=== PATIENT | male | born 1970 | race Caucasian/White ===

== ENCOUNTER 2016-12-09 20:39 | Inpatient (IN) | payer OTHER ==
[~2016-12-09] VITALS: Ht 185.4 cm; Wt 125.0 kg
[2016-12-09 20:40] VITALS: BP 131/78; PULSE 141; RESP 18; TEMP 98.2; O2SAT 100
[2016-12-09 21:09] VITALS: BP 127/74; PULSE 130; RESP 18; O2SAT 100
[2016-12-09] MEDS ORDERED: SODIUM CHLOR 0.9% 1000 ML INJ 1,000 ML IV SCH (21:09)
[2016-12-09] MEDS ORDERED: SODIUM CHLORIDE 0.9% FLUSH 10 ML FLUSH IVF PRN (21:15)
[2016-12-09] MEDS ORDERED: LORazepam 2 MG/ML VIAL ONE (21:25)
[2016-12-09 21:40] VITALS: O2SAT 100
[2016-12-09] MEDS ORDERED: LORazepam 2 MG/ML VIAL IV PUSH ONE (21:45)
--- NOTE | 2016-12-09 21:49 | PD ---
HPI Chief Complaint: GI Complaint Time Seen by Provider: 21:15 Travel History International Travel<30 days: No Contact w/Intl Traveler<30days: No Traveled to known affect area: No History of Present Illness HPI Patient is a 46-year-old male that attended to emergency room evaluation of black tar-like stools for the last 4 days. Patient states that over the course of week and he's felt increasingly more fatigued. states that he was at [employer] today and told her that he felt as if he was going to pass out if he kept standing. He denies any chest pain, shortness of breath, abdominal pain, fever, chills. Patient does take Aleve 2 [id number] tablets every night, he does not take any aspirin. He does have a history of diverticulitis otherwise he has no significant past medical history. PFSH Past Medical History Diminished Hearing: No Diverticulitis: Yes Past Surgical History Surgical History: No Previous Surgery Social History Alcohol Use: No Tobacco Use: No Substance Use: No Allergies-Medications (Allergen,Severity, Reaction): Coded Allergies: No Known Allergies (Unverified , 12/09/16) Reported Meds & Prescriptions Reported Meds & Active Scripts Active No Active Prescriptions or Reported Medications Review of Systems Except as stated in HPI: all other systems reviewed are Neg General / Constitutional: Positive: Other (fatigue) Gastrointestinal: Positive: Changes in Bowel Habits, Other (dark, tar like stool) Neurologic: Positive: Weakness Physical Exam Narrative GENERAL: Well-developed, well-nourished, alert male. Appears anxious , in no acute distress. SKIN: Warm and dry. HEAD: Atraumatic. Normocephalic. EYES: Pupils equal and round. No scleral icterus. No injection or drainage. ENT: No nasal bleeding or discharge. Mucous membranes pink and moist. NECK: Trachea midline. No JVD. CARDIOVASCULAR: Tachycardic RESPIRATORY: No accessory muscle use. Clear to auscultation. Breath sounds equal bilaterally. GASTROINTESTINAL: Abdomen soft, non-tender, nondistended. Hepatic and splenic margins not palpable. MUSCULOSKELETAL: Extremities without clubbing, cyanosis, or edema. No obvious deformities. NEUROLOGICAL: Awake and alert. No obvious cranial nerve deficits. Motor grossly within normal limits. Five out of 5 muscle strength in the arms and legs. Normal speech. PSYCHIATRIC: Appropriate mood and affect; insight and judgment normal. Data Data Last Documented VS Vital Signs Date Time Temp Pulse Resp B/P Pulse Ox O2 Delivery O2 Flow Rate FiO2 12/10/16 00:44 98.7 102 16 136/79 99 Room Air Orders Complete Blood Count With Diff (12/09/16 21:09) Comprehensive Metabolic Panel (12/09/16 21:09) Lipase (12/09/16 21:09) Prothrombin Time / Inr (Pt) (12/09/16 21:09) Act Partial Throm Time (Ptt) (12/09/16 21:09) Urinalysis - C+S If Indicated (12/09/16 21:09) Ecg Monitoring (12/09/16 21:09) Iv Access Insert/Monitor (12/09/16 21:09) Oximetry (12/09/16 21:09) Sodium Chlor 0.9% 1000 Ml Inj (Ns 1000 M (12/09/16 21:09) Sodium Chloride 0.9% Flush (Ns Flush) (12/09/16 21:15) Type And Screen (12/09/16 21:09) Lorazepam Inj (Ativan Inj) (12/09/16 21:25) Lorazepam Inj (Ativan Inj) (12/09/16 21:45) Ct Abd/Pel W Iv Contrast(Rout) (12/09/16 ) Iohexol 350 Inj (Omnipaque 350 Inj) (12/10/16 00:10) Pantoprazole Inj (Protonix Inj) (12/10/16 01:00) Pantoprazole Inj (Protonix Inj) (12/10/16 01:00) Admit Order (Ed Use Only) (12/10/16 00:51) Admit To Inpatient (12/10/16 ) Vital Signs (Adult) Q4H (12/10/16 00:52) Activity Oob Ad Melva (12/10/16 00:52) Intake + Output ZAKIA.QSHIFT (12/10/16 00:52) Sodium Chlor 0.9% 1000 Ml Inj (Ns 1000 M (12/10/16 00:52) Sodium Chloride 0.9% Flush (Ns Flush) (12/10/16 01:00) Sodium Chloride 0.9% Flush (Ns Flush) (12/10/16 09:00) Ondansetron Inj (Zofran Inj) (12/10/16 01:00) Comprehensive Metabolic Panel (12/11/16 06:00) Complete Blood Count With Diff (12/10/16 06:00) Pharmacologic Contraindication (12/10/16 00:52) Acetaminophen (Tylenol) (12/10/16 01:00) Acetamin-Hydrocod 325-5 Mg ([place] 5-325 (12/10/16 01:00) Docusate Sodium-Senna (Keri-Colace) (12/10/16 09:00) Magnesium Hydroxide Liq (Milk Of Magnesi (12/10/16 01:00) Sennosides (Senokot) (12/10/16 01:00) Bisacodyl Supp (Dulcolax Supp) (12/10/16 01:00) Lactulose Liq (Lactulose Liq) (12/10/16 01:00) Inpatient Certification (12/10/16 ) Consult Gastroenterology (12/10/16 ) Morphine Inj (Morphine Inj) (12/10/16 01:15) Labs Laboratory Tests Test 12/09/16 12/09/16 21:30 23:30 White Blood Count 15.7 TH/MM3 Red Blood Count 3.17 MIL/MM3 Hemoglobin 9.9 GM/DL Hematocrit 28.9 % Mean Corpuscular Volume 91.1 FL Mean Corpuscular Hemoglobin 31.0 PG Mean Corpuscular Hemoglobin 34.1 % Concent Red Cell Distribution Width 13.2 % Platelet Count 261 TH/MM3 Mean Platelet Volume 9.3 FL Neutrophils (%) (Auto) 63.8 % Lymphocytes (%) (Auto) 27.5 % Monocytes (%) (Auto) 8.0 % Eosinophils (%) (Auto) 0.2 % Basophils (%) (Auto) 0.5 % Neutrophils # (Auto) 10.0 TH/MM3 Lymphocytes # (Auto) 4.3 TH/MM3 Monocytes # (Auto) 1.3 TH/MM3 Eosinophils # (Auto) 0.0 TH/MM3 Basophils # (Auto) 0.1 TH/MM3 CBC Comment DIFF FINAL Differential Comment Prothrombin Time 10.5 SEC Prothromb Time International 1.0 RATIO Ratio Activated Partial 23.2 SEC Thromboplast Time Sodium Level 142 MEQ/L Potassium Level 3.6 MEQ/L Chloride Level 106 MEQ/L Carbon Dioxide Level 26.1 MEQ/L Anion Gap 10 MEQ/L Blood Urea Nitrogen 35 MG/DL Creatinine 1.06 MG/DL Estimat Glomerular Filtration 75 ML/MIN Rate Random Glucose 144 MG/DL Calcium Level 8.4 MG/DL Total Bilirubin 0.2 MG/DL Aspartate Amino Transf 12 U/L (AST/SGOT) Alanine Aminotransferase 29 U/L (ALT/SGPT) Alkaline Phosphatase 76 U/L Total Protein 7.0 GM/DL Albumin 3.5 GM/DL Lipase 184 U/L Blood Type O POSITIVE Antibody Screen NEGATIVE Blood Bank Comment Urine Color LIGHT-YELLOW Urine Turbidity CLEAR Urine pH 6.0 Urine Specific [place] 1.026 Urine Protein NEG mg/dL Urine Glucose (UA) NEG mg/dL Urine Ketones 10 mg/dL Urine Occult Blood NEG Urine Nitrite NEG Urine Bilirubin NEG Urine Urobilinogen LESS THAN 2.0 MG/DL Urine Leukocyte Esterase NEG Urine RBC 2 /hpf Urine WBC 2 /hpf Microscopic Urinalysis Comment CULT NOT INDICATED MDM Medical Decision Making Medical Screen Exam Complete: Yes Emergency Medical Condition: Yes Interpretation(s) Vital Signs Date Time Temp Pulse Resp B/P Pulse Ox O2 Delivery O2 Flow Rate FiO2 12/09/16 21:40 100 Room Air 12/09/16 21:09 16 12/09/16 21:09 130 18 127/74 100 Room Air 12/09/16 20:40 98.2 141 18 131/78 100 Room Air Laboratory Tests Test 12/09/16 21:30 White Blood Count 15.7 TH/MM3 Red Blood Count 3.17 MIL/MM3 Hemoglobin 9.9 GM/DL Hematocrit 28.9 % Mean Corpuscular Volume 91.1 FL Mean Corpuscular Hemoglobin 31.0 PG Mean Corpuscular Hemoglobin 34.1 % Concent Red Cell Distribution Width 13.2 % Platelet Count 261 TH/MM3 Mean Platelet Volume 9.3 FL Neutrophils (%) (Auto) 63.8 % Lymphocytes (%) (Auto) 27.5 % Monocytes (%) (Auto) 8.0 % Eosinophils (%) (Auto) 0.2 % Basophils (%) (Auto) 0.5 % Neutrophils # (Auto) 10.0 TH/MM3 Lymphocytes # (Auto) 4.3 TH/MM3 Monocytes # (Auto) 1.3 TH/MM3 Eosinophils # (Auto) 0.0 TH/MM3 Basophils # (Auto) 0.1 TH/MM3 CBC Comment DIFF FINAL Differential Comment Prothrombin Time 10.5 SEC Prothromb Time International 1.0 RATIO Ratio Activated Partial 23.2 SEC Thromboplast Time Sodium Level 142 MEQ/L Potassium Level 3.6 MEQ/L Chloride Level 106 MEQ/L Carbon Dioxide Level 26.1 MEQ/L Anion Gap 10 MEQ/L Blood Urea Nitrogen 35 MG/DL Creatinine 1.06 MG/DL Estimat Glomerular Filtration 75 ML/MIN Rate Random Glucose 144 MG/DL Calcium Level 8.4 MG/DL Total Bilirubin 0.2 MG/DL Aspartate Amino Transf 12 U/L (AST/SGOT) Alanine Aminotransferase 29 U/L (ALT/SGPT) Alkaline Phosphatase 76 U/L Total Protein 7.0 GM/DL Albumin 3.5 GM/DL Lipase 184 U/L Blood Type O POSITIVE Antibody Screen NEGATIVE Blood Bank Comment Vital Signs Date Time Temp Pulse Resp B/P Pulse Ox O2 Delivery O2 Flow Rate FiO2 12/09/16 21:40 100 Room Air 12/09/16 21:09 16 12/09/16 21:09 130 18 127/74 100 Room Air 12/09/16 20:40 98.2 141 18 131/78 100 Room Air Differential Diagnosis GI bleed versus anemia versus metabolic disturbance versus other Narrative Course Patient is a 46-year-old male presenting to emergency evaluation of 4 days of dark, tarry-like stools, fatigue and weakness. Patient is tachycardic on arrival, he has a significant phobia to needles as well as being in the hospital. Initial EKG shows sinus tachycardia with a rate of 126. Labs ordered and pending, at bedside. Hemocard positive for blood. CBC with a white count of 15.7, hemoglobin 9.9/28.9 Chemistry with no acute abnormality Coags are unremarkable CT scan of the abdomen and pelvis is ordered due to elevation in white count. Patient will be admitted to trend hemoglobin, CT results pending. Care of patient transferred to my attending physician who will finalize patient's disposition after all the labs and imaging have resulted. HemaPrompt Point of Care Fecal Specimen Occult Blood: Positive Scripts No Active Prescriptions or Reported Meds Kristin Hinds Dec 09, 2016 21:49
[2016-12-09 22:08] LABS: BASOPHIL # 0.1 TH/MM3 (0-0.2); BASOPHIL % 0.5 % (0.0-2.0); EOSINOPHIL % 0.2 % (0.0-4.0); HEMATOCRIT 28.9 % (39.0-51.0); HEMO FLAGS DIFF FINAL; LYMPH % 27.5 % (9.0-44.0); LYMPHOCYTE # 4.3 TH/MM3 (1.0-4.8); MEAN CELL VOLUME 91.1 FL (80.0-100.0); MEAN CORPUSCULAR HGB CONC 34.1 % (32.0-36.0); NEUT % 63.8 % (16.0-70.0); PLATELET COUNT 261 TH/MM3 (150-450); RED BLOOD COUNT 3.17 MIL/MM3 (4.50-5.90); RED CELL DISTRIBUTION WIDTH 13.2 % (11.6-17.2); WHITE BLOOD COUNT 15.7 TH/MM3 (4.0-11.0)
[2016-12-09 22:24] LABS: ALT (GPT) 29 U/L (12-78); ANION GAP 10 MEQ/L (5-15); AST (GOT) 12 U/L (15-37); BICARBONATE 26.1 MEQ/L (21.0-32.0); BLOOD UREA NITROGEN 35 MG/DL (7-18); CHLORIDE 106 MEQ/L (98-107); GLOMERULAR FILTRATION RATE 75 ML/MIN (>89); POTASSIUM 3.6 MEQ/L (3.5-5.1); SODIUM (NA) 142 MEQ/L (136-145)
[2016-12-09 22:25] LABS: ALKALINE PHOSPHATASE 76 U/L (45-117); TOTAL BILIRUBIN ADULT 0.2 MG/DL (0.2-1.0)
[2016-12-09 22:43] LABS: APTT (PATIENT) 23.2 SEC (24.3-30.1); PROTHROMBIN TIME - PATIENT 10.5 SEC (9.8-11.6)
--- NOTE | 2016-12-09 22:57 | PD ---
Data Data Last Documented VS Vital Signs Date Time Temp Pulse Resp B/P Pulse Ox O2 Delivery O2 Flow Rate FiO2 12/10/16 00:44 98.7 102 16 136/79 99 Room Air Orders Complete Blood Count With Diff (12/09/16 21:09) Comprehensive Metabolic Panel (12/09/16 21:09) Lipase (12/09/16 21:09) Prothrombin Time / Inr (Pt) (12/09/16 21:09) Act Partial Throm Time (Ptt) (12/09/16 21:09) Urinalysis - C+S If Indicated (12/09/16 21:09) Ecg Monitoring (12/09/16 21:09) Iv Access Insert/Monitor (12/09/16 21:09) Oximetry (12/09/16 21:09) Sodium Chlor 0.9% 1000 Ml Inj (Ns 1000 M (12/09/16 21:09) Sodium Chloride 0.9% Flush (Ns Flush) (12/09/16 21:15) Type And Screen (12/09/16 21:09) Lorazepam Inj (Ativan Inj) (12/09/16 21:25) Lorazepam Inj (Ativan Inj) (12/09/16 21:45) Ct Abd/Pel W Iv Contrast(Rout) (12/09/16 ) Iohexol 350 Inj (Omnipaque 350 Inj) (12/10/16 00:10) Pantoprazole Inj (Protonix Inj) (12/10/16 01:00) Pantoprazole Inj (Protonix Inj) (12/10/16 01:00) Admit Order (Ed Use Only) (12/10/16 00:51) Admit To Inpatient (12/10/16 ) Vital Signs (Adult) Q4H (12/10/16 00:52) Activity Oob Ad Melva (12/10/16 00:52) Intake + Output ZAKIA.QSHIFT (12/10/16 00:52) Diet Regular Basic (12/10/16 Breakfast) Sodium Chlor 0.9% 1000 Ml Inj (Ns 1000 M (12/10/16 00:52) Sodium Chloride 0.9% Flush (Ns Flush) (12/10/16 01:00) Sodium Chloride 0.9% Flush (Ns Flush) (12/10/16 09:00) Ondansetron Inj (Zofran Inj) (12/10/16 01:00) Comprehensive Metabolic Panel (12/11/16 06:00) Complete Blood Count With Diff (12/10/16 06:00) Pharmacologic Contraindication (12/10/16 00:52) Acetaminophen (Tylenol) (12/10/16 01:00) Acetamin-Hydrocod 325-5 Mg ([place] 5-325 (12/10/16 01:00) Docusate Sodium-Senna (Keri-Colace) (12/10/16 09:00) Magnesium Hydroxide Liq (Milk Of Magnesi (12/10/16 01:00) Sennosides (Senokot) (12/10/16 01:00) Bisacodyl Supp (Dulcolax Supp) (12/10/16 01:00) Lactulose Liq (Lactulose Liq) (12/10/16 01:00) Inpatient Certification (12/10/16 ) Consult Gastroenterology (12/10/16 ) Morphine Inj (Morphine Inj) (12/10/16 01:15) Labs Laboratory Tests Test 12/09/16 12/09/16 21:30 23:30 White Blood Count 15.7 TH/MM3 Red Blood Count 3.17 MIL/MM3 Hemoglobin 9.9 GM/DL Hematocrit 28.9 % Mean Corpuscular Volume 91.1 FL Mean Corpuscular Hemoglobin 31.0 PG Mean Corpuscular Hemoglobin 34.1 % Concent Red Cell Distribution Width 13.2 % Platelet Count 261 TH/MM3 Mean Platelet Volume 9.3 FL Neutrophils (%) (Auto) 63.8 % Lymphocytes (%) (Auto) 27.5 % Monocytes (%) (Auto) 8.0 % Eosinophils (%) (Auto) 0.2 % Basophils (%) (Auto) 0.5 % Neutrophils # (Auto) 10.0 TH/MM3 Lymphocytes # (Auto) 4.3 TH/MM3 Monocytes # (Auto) 1.3 TH/MM3 Eosinophils # (Auto) 0.0 TH/MM3 Basophils # (Auto) 0.1 TH/MM3 CBC Comment DIFF FINAL Differential Comment Prothrombin Time 10.5 SEC Prothromb Time International 1.0 RATIO Ratio Activated Partial 23.2 SEC Thromboplast Time Sodium Level 142 MEQ/L Potassium Level 3.6 MEQ/L Chloride Level 106 MEQ/L Carbon Dioxide Level 26.1 MEQ/L Anion Gap 10 MEQ/L Blood Urea Nitrogen 35 MG/DL Creatinine 1.06 MG/DL Estimat Glomerular Filtration 75 ML/MIN Rate Random Glucose 144 MG/DL Calcium Level 8.4 MG/DL Total Bilirubin 0.2 MG/DL Aspartate Amino Transf 12 U/L (AST/SGOT) Alanine Aminotransferase 29 U/L (ALT/SGPT) Alkaline Phosphatase 76 U/L Total Protein 7.0 GM/DL Albumin 3.5 GM/DL Lipase 184 U/L Blood Type O POSITIVE Antibody Screen NEGATIVE Blood Bank Comment Urine Color LIGHT-YELLOW Urine Turbidity CLEAR Urine pH 6.0 Urine Specific [place] 1.026 Urine Protein NEG mg/dL Urine Glucose (UA) NEG mg/dL Urine Ketones 10 mg/dL Urine Occult Blood NEG Urine Nitrite NEG Urine Bilirubin NEG Urine Urobilinogen LESS THAN 2.0 MG/DL Urine Leukocyte Esterase NEG Urine RBC 2 /hpf Urine WBC 2 /hpf Microscopic Urinalysis Comment CULT NOT INDICATED MDM Medical Record Reviewed: Yes Supervised Visit with DIANE: No Interpretation(s) Last Impressions Abdomen/Pelvis CT 12/09/16 0000 Signed Impressions: Service Date/Time: Saturday, December 10, 2016 00:05 - CONCLUSION: 1. A few scattered diverticula are seen throughout the colon. 2. Small benign 8mm left renal cyst. 3. Otherwise, unremarkable exam. Godfrey Verduzco MD Narrative Course During the course of the patients emergency department visit, the patients history, examination, and differential diagnosis were reviewed with the patient. The patient had IV access obtained and blood work sent for analysis. The patient was placed on a pvc monitor with oximetry and blood pressure monitoring. The patient's case was checked out to me by Kristin at the conclusion of her shift. The patient was reportedly experiencing black tarry stools that were Hemoccult positive. The patient has a known history of diverticulitis. The patient's white blood cell count was elevated and his hemoglobin was noted be low at 9.9. A CT scan of the abdomen and pelvis is pending at the conclusion of her shift. The patient was initially provided normal saline 1 L IV fluid bolus, Ativan 0.5 mg IV for anxiety related to IV access placement. The patient was given Protonix 80 mg IV, followed by Protonix drip at 8 mg IV per hour. The patients laboratory studies were reviewed and remarkable for a white count of 15.7, hemoglobin 9.9, platelets 261 with an unremarkable differential, CMP is remarkable for a BUN of 35, GFR 75, glucose 144, calcium 8.4, AST 12, lipase 184, PT 10.5, PTT 23.2, urinalysis shows 10 ketones otherwise unremarkable. Radiology studies were reviewed and remarkable for a CT scan of the abdomen and pelvis that shows a few scattered diverticuli seen throughout the colon, small benign 8 mm left renal cyst, otherwise unremarkable. The patients results were discussed with the patient, including the plan of care. I explained that further testing and/ or monitoring is indicated based on the patients history, examination, and/ or laboratory findings. Therefore, I recommended admission for additional evaluation. The patient expressed understanding and was agreeable with this plan. The patient was admitted to the hospital in stable condition and sent to a [facility]. Physician Communication Physician Communication The patient's case was discussed with Dr. Martines who did agree to admit the patient for further evaluation and treatment at this time Diagnosis Primary Impression: GI bleed Qualified Code: K92.2 - Gastrointestinal hemorrhage, unspecified gastrointestinal hemorrhage type Admitting Information Admitting Physician Requests: Admit Scripts No Active Prescriptions or Reported Meds Monica Calvert MD Dec 09, 2016 22:57
[2016-12-09 23:39] LABS: BLOOD, URINE NEG (NEG); GLUCOSE,URINE NEG (NEG); KETONE, URINE 10 mg/dL (NEG); NITRITE,URINE NEG (NEG); URINE COLOR LIGHT-YELLOW (YELLW/STRAW)
[2016-12-09 23:40] LABS: COMMENT (UR) CULT NOT INDICATED; CULTURE IF INDICATED CULT NOT INDICATED
[2016-12-10] VITALS (8 sets, daily range): BP systolic 122–137; BP diastolic 69–81; PULSE 82–103; RESP 16–20; TEMP 97.7–98.7; O2SAT 97–100
[2016-12-10] MEDS ORDERED: IOHEXOL 350 MG/ML 10 ML VIAL (for RAD DIAG) IV ONE (00:10)
--- NOTE | 2016-12-10 00:24 | RADRPT ---
EXAM DATE/TIME: 12/10/2016 00:05 [facility] COMPARISON: No previous studies available for comparison. INDICATIONS : Abdominal pain with blood in stools X 4 days. IV CONTRAST: 97 cc Omnipaque 350 (iohexol) IV ORAL CONTRAST: No oral contrast ingested. RADIATION DOSE: 19.72 CTDIvol (mGy) MEDICAL HISTORY : Diverticulitis. SURGICAL HISTORY : None. ENCOUNTER: Initial ACUITY: 4 - 6 days PAIN SCALE: 5/10 LOCATION: abdomen TECHNIQUE: Volumetric scanning of the abdomen and pelvis was performed. Using automated exposure control and ad justment of the mA and/or kV according to patient size, radiation dose was kept as low as reasonably achievable to obtain optimal diagnostic quality images. DICOM format image data is available electro nically for review and comparison. FINDINGS: LOWER LUNGS: The visualized lower lungs are clear. LIVER: Homogeneous density without lesion. There is no dilation of the biliary tree. No calcified gallston es. SPLEEN: Normal size without lesion. PANCREAS: Within normal limits. KIDNEYS: Normal in size and shape. There is no mass, stone or hydronephrosis. Small 8 mm cyst midpole left ki dney. ADRENAL GLANDS: Within normal limits. VASCULAR: There is no aortic aneurysm. BOWEL/MESENTERY: The stomach, small bowel, and colon demonstrate no acute abnormality. There is no free intraperitone al air or fluid. A few scattered diverticula. No inflammatory changes. There stool in the colon. ABDOMINAL WALL: Within normal limits. RETROPERITONEUM: There is no lymphadenopathy. BLADDER: No wall thickening or mass. REPRODUCTIVE: Within normal limits. INGUINAL: There is no lymphadenopathy or hernia. MUSCULOSKELETAL: Within normal limits for patient age. Mild degenerative changes. CONCLUSION: 1. A few scattered diverticula are seen throughout the colon. 2. Small benign 8mm left renal cyst. 3. Otherwise, unremarkable exam. Godfrey Verduzco MD on December 10, 2016 at 0:20 Board Certified Radiologist. This report was verified electronically.
[2016-12-10] MEDS ORDERED: ONDANSETRON HCL 4 MG/2 ML VIAL IVP PRN (01:00)
[2016-12-10] MEDS ORDERED: SENNOSIDES 8.6 MG TAB PO PRN (01:00)
[2016-12-10] MEDS ORDERED: MAGNESIUM HYDROXIDE SUSP 30 ML CUP PO PRN (01:00)
[2016-12-10] MEDS ORDERED: PANTOPRAZOLE INJ 80 MG in SODIUM CHLORIDE 0.9% INJ 35 ML IV ONE (01:00)
[2016-12-10] MEDS ORDERED: BISACODYL 10 MG SUPP RECTAL PRN (01:00)
[2016-12-10] MEDS ORDERED: ACETAMINOPHEN/HYDROcodone 325 MG/5 MG TAB PO PRN (01:00)
[2016-12-10] MEDS ORDERED: LACTULOSE SYRUP 20 GM/30 ML CUP PO PRN (01:00)
[2016-12-10] MEDS ORDERED: ACETAMINOPHEN 325 MG TAB PO PRN (01:00)
[2016-12-10] MEDS ORDERED: SODIUM CHLORIDE 0.9% FLUSH 10 ML FLUSH IV FLUSH PRN (01:00)
[2016-12-10] MEDS ORDERED: MORPHINE SULFATE 8 MG/ML INJ IV PUSH PRN (01:15)
--- NOTE | 2016-12-10 02:02 | HHI.HP ---
[facility] Ad[facility] Diagnosis GI Bleed Diagnoses: (1) GI bleed Diagnosis: Principal (2) Anemia Diagnosis: Principal (3) Leukocytosis Diagnosis: Principal Travel History International Travel<30 Days: No Contact w/Intl Traveler <30 Da: No Traveled to Known Affected Are: No History of Present Illness This is a 46-year-old male with no significant PMH who presented to the ER with complaints of black stool x4 days in addition to abdominal pain and generalized weakness. Denies fever, chills, nausea, vomiting or diarrhea. Has been taking OTC Aleve for complaints of pain, 2 tabs at night. Today w/ episode of lightheadedness/dizziness while at [employer] w/ near syncopal event. On arrival, BP 131/78, HR 141, O2 sat 100% on RA, Afebrile. WBC 15.7. Hemoglobin 9.9, no previous labs for comparison. GFR 75. BUN 35. INR 1.0. UA negative. CT Abd/ Pelvis w/ few scattered diverticula and small benign renal cyst. +Hemoccult on exam. Review of Systems ROS: 14 point review of systems otherwise negative. Past Family Social History Past Medical History PMH: None Past Surgical History PAST SURGICAL HISTORY: None Allergies: Coded Allergies: No Known Allergies (Unverified , 12/09/16) Family History PAST FAMILY HISTORY: Reviewed. No h/o DM or CAD Social History PAST SOCIAL HISTORY: Negative for alcohol, tobacco or drugs. Physical Exam Vital Signs Vital Signs Date Time Temp Pulse Resp B/P Pulse Ox O2 Delivery O2 Flow Rate FiO2 12/10/16 00:44 98.7 102 16 136/79 99 Room Air 12/09/16 21:40 100 Room Air 12/09/16 21:09 16 12/09/16 21:09 130 18 127/74 100 Room Air 12/09/16 20:40 98.2 141 18 131/78 100 Room Air Physical Exam PE: GENERAL: Middle-aged male in no acute distress. HEENT: PERRLA, EOMI. No scleral icterus or conjunctival pallor. No lid lag or facial droop. CARDIOVASCULAR: Regular rate and rhythm. No obvious murmurs to auscultation. No chest tenderness to palpation. RESPIRATORY: No obvious rhonchi or wheezing. Clear to auscultation. Breath sounds equal bilaterally. GASTROINTESTINAL: Abdomen soft, non-tender, nondistended. BS normal. MUSCULOSKELETAL: Extremities without clubbing, cyanosis, or edema. No obvious deformities. NEUROLOGICAL: Awake, alert and oriented x4. No focal neurologic deficits. Moving both upper and lower extremities spontaneously. Laboratory Laboratory Tests Test 12/09/16 12/09/16 21:30 23:30 White Blood Count 15.7 Red Blood Count 3.17 Hemoglobin 9.9 Hematocrit 28.9 Mean Corpuscular Volume 91.1 Mean Corpuscular Hemoglobin 31.0 Mean Corpuscular Hemoglobin 34.1 Concent Red Cell Distribution Width 13.2 Platelet Count 261 Mean Platelet Volume 9.3 Neutrophils (%) (Auto) 63.8 Lymphocytes (%) (Auto) 27.5 Monocytes (%) (Auto) 8.0 Eosinophils (%) (Auto) 0.2 Basophils (%) (Auto) 0.5 Neutrophils # (Auto) 10.0 Lymphocytes # (Auto) 4.3 Monocytes # (Auto) 1.3 Eosinophils # (Auto) 0.0 Basophils # (Auto) 0.1 CBC Comment DIFF FINAL Differential Comment Prothrombin Time 10.5 Prothromb Time International 1.0 Ratio Activated Partial 23.2 Thromboplast Time Sodium Level 142 Potassium Level 3.6 Chloride Level 106 Carbon Dioxide Level 26.1 Anion Gap 10 Blood Urea Nitrogen 35 Creatinine 1.06 Estimat Glomerular Filtration 75 Rate Random Glucose 144 Calcium Level 8.4 Total Bilirubin 0.2 Aspartate Amino Transf 12 (AST/SGOT) Alanine Aminotransferase 29 (ALT/SGPT) Alkaline Phosphatase 76 Total Protein 7.0 Albumin 3.5 Lipase 184 Blood Type O POSITIVE Antibody Screen NEGATIVE Blood Bank Comment Urine Color LIGHT-YELLOW Urine Turbidity CLEAR Urine pH 6.0 Urine Specific [place] 1.026 Urine Protein NEG Urine Glucose (UA) NEG Urine Ketones 10 Urine Occult Blood NEG Urine Nitrite NEG Urine Bilirubin NEG Urine Urobilinogen LESS THAN 2.0 Urine Leukocyte Esterase NEG Urine RBC 2 Urine WBC 2 Microscopic Urinalysis Comment CULT NOT INDICATED Result Diagram: 12/09/16212912/09/162129 Assessment and Plan Problem List: (1) GI bleed ICD Code: K92.2 Status: Acute (2) Anemia ICD Code: D64.9 Status: Acute (3) Leukocytosis ICD Code: D72.829 Status: Acute Assessment and Plan A/P: 1. GI Bleed: c/o black stool x4 days, on Aleve 2 tabs/night, +Hemoccult on exam. Hgb 9.9. INR 1.0. CT Abd/Pelvis w/ diverticula but no diverticulosis, images reviewed by me. Protonix gtt. Consult GI for further eval 2. Anemia: Symptomatic. Hgb 9.9, no previous labs for comparison. Likely secondary to GI Bleed. Type & Screen, recheck Hgb/Hct in am for trend, transfuse as necessary for Hgb <7 3. Leukocytosis: WBC 15.7. Afebrile. CT Abd/Pelvis w/ no evidence of colitis , images reviewed. Likely reactive secondary to acute GI Bleed, will monitor, recheck labs in am. 4. DVT Prophylaxis: Pharmacologic contraindication secondary to acute bleed. 5. Social work for d/c planning as needed. 6. Case discussed w/ ER physician at length. Physician Certification 2 Midnight Certification Type: Admission for Inpatient Services Order for Inpatient Services The services are ordered in accordance with Medicare regulations or non- Medicare payer requirements, as applicable. In the case of services not specified as inpatient-only, they are appropriately provided as inpatient services in accordance with the 2-midnight benchmark. Estimated LOS (days): 2 days is the estimated time the patient will need to remain in the hospital, assuming treatment plan goals are met and no additional complications. Post-Hospital Plan: Not yet determined Faye Martines MD Dec 10, 2016 02:02
[2016-12-10] MEDS: SODIUM CHLOR 0.9% 1000 ML INJ 1,000 ML IV SCH ×3 (02:03→20:49)
[2016-12-10] MEDS: PANTOPRAZOLE INJ 80 MG in SODIUM CHLORIDE 0.9% INJ 100 ML IV SCH ×2 (02:03→16:03)
[2016-12-10] MEDS: ZOLPIDEM TARTRATE 5 MG TAB PO PRN ×2 (02:34→23:37)
[2016-12-10 04:37] LABS: AUTOMATED NEUTROPHIL # 7.2 TH/MM3 (1.8-7.7); BASOPHIL % 0.3 % (0.0-2.0); EOSINOPHIL % 0.2 % (0.0-4.0); HEMO FLAGS DIFF FINAL; LYMPH % 24.4 % (9.0-44.0); LYMPHOCYTE # 2.6 TH/MM3 (1.0-4.8); MEAN CELL VOLUME 91.5 FL (80.0-100.0); MEAN CORPUSCULAR HEMOGLOBIN 31.1 PG (27.0-34.0); MEAN CORPUSCULAR HGB CONC 33.9 % (32.0-36.0); MONO % 7.1 % (0.0-8.0); PLATELET COUNT 195 TH/MM3 (150-450); RED BLOOD COUNT 2.52 MIL/MM3 (4.50-5.90); RED CELL DISTRIBUTION WIDTH 13.4 % (11.6-17.2); WHITE BLOOD COUNT 10.6 TH/MM3 (4.0-11.0)
[2016-12-10 06:52] LABS: HEMATOCRIT 22.9 % (39.0-51.0)
--- NOTE | 2016-12-10 08:33 | PD.CONS ---
HPI History of Present Illness This is a 46 year old male who came to the ER for evaluation of melena. He started having dark tarry stool last . He was not having any associated heartburn, reflux, nausea, vomiting, current abdominal pain, constipation, or hematochezia. He notified his doctor and the plan was for him to be seen today in the office. However, yesterday his heart rate went to the 130's and he was having generalized weakness and therefore came to the ER for evaluation. He has had mild intermittent RUQ discomfort, described as a dull ache that radiates to the lower rib cage on both sounds. He has associated bloating and increased flatulence over the past few months. Of note, he has also had shortness of breath and palpitations with exertion for the past few days. He was recently seen for left sided ear pain and started on a steroid dose pack this past Saturday. He takes Melaleuca pills daily. He has been taking Aleve every night to help him sleep. He denies any history of peptic ulcer disease and has never had an EGD/Colonoscopy. He did have a virtual colonoscopy about 7 years ago for evaluation of black stool and was told that he had diverticulosis. No family hx of esophageal, gastric, or colorectal cancer. (Tessa Valdez) PFSH Past Medical History Diverticulosis Past Surgical History Tonsillectomy (Tessa Valdez) Coded Allergies: No Known Allergies (Unverified , 12/09/16) Medications Allergies Coded Allergies Type Severity Reaction Last Updated Verified No Known Allergies 12/09/16 No Active Scripts Medications Dose Route/Sig Days Date Category No Active Prescriptions or Reported Medications Rx Melaleuca Aleve Recent steroid dose pack Melatonin Family History No family hx of esophageal, gastric, colorectal cancer. Mother has DM Maternal GF DM Maternal GM DM Social History Negative for alcohol, tobacco or drugs. (Tessa Valdez) Review of Systems Constitutional: COMPLAINS OF: Fatigue, Weight loss (diet changed), DENIES: Fever, Chills, Change in appetite Respiratory: COMPLAINS OF: Shortness of breath, DENIES: Cough Cardiovascular: COMPLAINS OF: Palpitations, DENIES: Chest pain Gastrointestinal: COMPLAINS OF: Abdominal pain, Black stools, Swelling of Abdomen, DENIES: Bloody stools, Constipation, Diarrhea, Nausea, Vomiting, Anorexia, Heartburn, Hematemesis Musculoskeletal: DENIES: Joint pain Integumentary: DENIES: Rash Neurologic: DENIES: Headache Psychiatric: DENIES: Confusion (Tessa Valdez) GI Exam Vitals I&O Vital Signs Date Time Temp Pulse Resp B/P Pulse Ox O2 Delivery O2 Flow Rate FiO2 12/10/16 07:11 90 16 131/70 98 12/10/16 02:04 103 18 137/80 100 Room Air 12/10/16 00:44 98.7 102 16 136/79 99 Room Air 12/09/16 21:40 100 Room Air 12/09/16 21:09 16 12/09/16 21:09 130 18 127/74 100 Room Air 12/09/16 20:40 98.2 141 18 131/78 100 Room Air Laboratory Test 12/09/16 12/09/16 12/10/16 12/10/16 21:30 23:30 03:56 06:45 White Blood Count 15.7 TH/MM3 10.6 TH/MM3 Red Blood Count 3.17 MIL/MM3 2.52 MIL/MM3 Hemoglobin 9.9 GM/DL 7.8 GM/DL 7.8 GM/DL Hematocrit 28.9 % 23.0 % 22.9 % Mean Corpuscular Volume 91.1 FL 91.5 FL Mean Corpuscular Hemoglobin 31.0 PG 31.1 PG Mean Corpuscular Hemoglobin 34.1 % 33.9 % Concent Red Cell Distribution Width 13.2 % 13.4 % Platelet Count 261 TH/MM3 195 TH/MM3 Mean Platelet Volume 9.3 FL 8.5 FL Neutrophils (%) (Auto) 63.8 % 68.0 % Lymphocytes (%) (Auto) 27.5 % 24.4 % Monocytes (%) (Auto) 8.0 % 7.1 % Eosinophils (%) (Auto) 0.2 % 0.2 % Basophils (%) (Auto) 0.5 % 0.3 % Neutrophils # (Auto) 10.0 TH/MM3 7.2 TH/MM3 Lymphocytes # (Auto) 4.3 TH/MM3 2.6 TH/MM3 Monocytes # (Auto) 1.3 TH/MM3 0.8 TH/MM3 Eosinophils # (Auto) 0.0 TH/MM3 0.0 TH/MM3 Basophils # (Auto) 0.1 TH/MM3 0.0 TH/MM3 CBC Comment DIFF FINAL DIFF FINAL Differential Comment Prothrombin Time 10.5 SEC Prothromb Time International 1.0 RATIO Ratio Activated Partial 23.2 SEC Thromboplast Time Sodium Level 142 MEQ/L Potassium Level 3.6 MEQ/L Chloride Level 106 MEQ/L Carbon Dioxide Level 26.1 MEQ/L Anion Gap 10 MEQ/L Blood Urea Nitrogen 35 MG/DL Creatinine 1.06 MG/DL Estimat Glomerular Filtration 75 ML/MIN Rate Random Glucose 144 MG/DL Calcium Level 8.4 MG/DL Total Bilirubin 0.2 MG/DL Aspartate Amino Transf 12 U/L (AST/SGOT) Alanine Aminotransferase 29 U/L (ALT/SGPT) Alkaline Phosphatase 76 U/L Total Protein 7.0 GM/DL Albumin 3.5 GM/DL Lipase 184 U/L Blood Type O POSITIVE Antibody Screen NEGATIVE Blood Bank Comment Urine Color LIGHT-YELLOW Urine Turbidity CLEAR Urine pH 6.0 Urine Specific [place] 1.026 Urine Protein NEG mg/dL Urine Glucose (UA) NEG mg/dL Urine Ketones 10 mg/dL Urine Occult Blood NEG Urine Nitrite NEG Urine Bilirubin NEG Urine Urobilinogen LESS THAN 2.0 MG/DL Urine Leukocyte Esterase NEG Urine RBC 2 /hpf Urine WBC 2 /hpf Microscopic Urinalysis Comment CULT NOT INDICATED Physical Examination HEENT: Normocephalic; atraumatic; no jaundice. CHEST: CTA CARDIAC: RRR. ABDOMEN: Soft, nondistended, nontender; no hepatosplenomegaly; bowel sounds are present in all four quadrants. EXTREMITIES: No clubbing, cyanosis, or edema. SKIN: Normal; no rash; no jaundice. LEVEL VIAL SETTER: No focal deficits; alert and oriented times three. (Tessa ValdezP) Assessment and Plan Plan ASSESSMENT: - Upper GIB, Melena. 4 day hx of black tarry stool. No n/v/pain at this time. Has had intermittent RUQ dull ache with bloating for several weeks/months. Pt takes Melaleuca tabs, Aleve PM at night, and was recently started on a steroid dose back. HH 9./28.9 to 7.8/22.9. Protonix Gtt. - Anemia, secondary to acute blood loss. .02/21.9 to 7.8/22.9. Protonix Gtt - Hx Diverticulosis. PLAN: - Plan for EGD today - Obtain consent - NPO - Protonix Gtt - Monitor HH - Supportive care - Further recommendations to follow based on results of above - Pt seen and examined by Dr. Pozo and myself and this note is written on her behalf (Tessa Valdez) Physician Comments seen, examined agree with above he also started taking Advil pm recently had a ct colonography few years back -as per him negative (Yuli Pozo MD ) Tessa Valdez Dec 10, 2016 08:33 Yuli Pozo MD Dec 10, 2016 11:33
[2016-12-10] MEDS: DOCUSATE SODIUM 50 MG/SENNA 8.6 MG TAB PO SCH ×2 (08:54→20:48)
[2016-12-10] MEDS: SODIUM CHLORIDE 0.9% FLUSH 10 ML FLUSH IV FLUSH SCH ×2 (08:54→20:48)
[2016-12-10] MEDS ORDERED: PROPOFOL 200 MG/20 ML AMP IV ONE (11:20)
--- NOTE | 2016-12-10 11:39 | GIPROC ---
[facility] [address] [facility]. [facility], [address] EGD PROCEDURE REPORT EXAM DATE: 12/10/2016 PATIENT NAME: Montana Martin MR #: [id number] BIRTHDATE: 1970 ATTENDING: Yuli Pozo MD ORDER #: [id number] PHOTO MASK INSPECTOR: Conrad Triana and Nino Chavarria STATUS: inpatient INDICATIONS: The patient is a 46 yr old male here for an EGD due to anemia, gi bleeding PROCEDURE PERFORMED: EGD w/ biopsy MEDICATIONS: None and Per Anesthesia. TOPICAL ANESTHETIC: none CONSENT: The patient understands the risks and benefits of the procedure and understands that these risks include, but are not limited to: sedation, allergic reaction, infection, perforation and/or bleeding. Alternative means of evaluation and treatment include, among others: physical exam, x-rays, and/or surgical intervention. The patient elects to proceed with this endoscopic procedure. medical equipment was checked for proper function. Hand hygiene and appropriate measures for infection prevention was taken. After the risks, benefits and alternatives of the procedure were thoroughly explained, Informed consent was verified, confirmed and timeout was successfully executed by the treatment team. The patient was anesthetized with topical anesthesia and the Pentax [id number] endoscope was introduced through the mouth and advanced to the second portion of the duodenum. Retroflexed views revealed a hiatal hernia The gastroscope was then slowly withdrawn and removed. Gastritis antrum-biopsy clean base ulcer with avissible vessel in distal esophagus -biopsy 2 clips applied over it duodenitis duodenla bulb. ADVERSE EVENTS: There were no complications. IMPRESSIONS: 1. Gastritis antrum-biopsy clean base ulcer with avissible vessel in distal esophagus -biopsy 2 clips applied over it duodenitis duodenla bulb 2. Retroflexed views revealed a hiatal hernia RECOMMENDATIONS: Full liquid diet carafate 1 gm po tid ppi avoiod nsaids , steroids colonoscopy in am if agrees egd in 6 weeks monitor hb/ht closely-transfuse if hb less than 7 PATIENT CONDITION: stable DISPOSITION: Inpatient REPEAT EXAM: EGD pending biopsy results Yuli Pozo MD eSigned: Yuli Pozo MD 12/10/2016 11:39 AM cc: PATIENT NAME: Montana Martin MR#: [id number]
[2016-12-10] MEDS ORDERED: MAGNESIUM CITRATE SOLN 300 ML BTL PO ONE ×2 (12:00→18:00)
[2016-12-10 13:41] LABS: HEMATOCRIT 22.4 % (39.0-51.0); REVIEW FLAG FINAL
[2016-12-10] MEDS ORDERED: MIDAZOLAM HCL 2 MG/2 ML VIAL ONE (14:55)
--- NOTE | 2016-12-10 15:56 | HHI.PR ---
Subjective Remarks Follow-up GI bleed, anemia. Patient is status post endoscopy. Reports a "very mild headache". No abdominal pain, nausea, vomiting. Objective Vitals Vital Signs Date Time Temp Pulse Resp B/P Pulse Ox O2 Delivery O2 Flow Rate FiO2 12/10/16 12:01 97.9 91 16 124/81 99 12/10/16 11:51 97 18 126/74 98 12/10/16 11:41 90 18 117/72 97 12/10/16 11:31 98.1 93 18 118/79 97 12/10/16 10:23 98.7 94 16 131/70 99 12/10/16 07:11 90 16 131/70 98 12/10/16 02:04 103 18 137/80 100 Room Air 12/10/16 00:44 98.7 102 16 136/79 99 Room Air 12/09/16 21:40 100 Room Air 12/09/16 21:09 16 12/09/16 21:09 130 18 127/74 100 Room Air 12/09/16 20:40 98.2 141 18 131/78 100 Room Air I/O 12/09/16 12/09/16 12/09/16 12/10/16 12/10/16 12/10/16 07:00 15:00 23:00 07:00 15:00 23:00 Intake Total 400 ml Balance 400 ml Intake Other 400 ml Result Diagram: 12/10/16 1310 12/09/16 2130 Imaging Last Impressions Abdomen/Pelvis CT 12/09/16 0000 Signed Impressions: Service Date/Time: Saturday, December 10, 2016 00:05 - CONCLUSION: 1. A few scattered diverticula are seen throughout the colon. 2. Small benign 8mm left renal cyst. 3. Otherwise, unremarkable exam. Godfrey Verduzco MD Objective Remarks General: No acute distress. Heart: Regular rate and rhythm. No murmur. Lungs: Clear to auscultation bilaterally. No wheezes, rales, or rhonchi. Breathing is nonlabored. Abdomen: Soft, nontender, nondistended. Extremities: No lower extremity edema. Psych: Alert and oriented. Procedures 12/10/16 EGD Urinary Catheter: No Vascular Central Line Catheter: No A/P Problem List: (1) GI bleed ICD Code: K92.2 Status: Acute (2) Anemia ICD Code: D64.9 Status: Acute (3) Leukocytosis ICD Code: D72.829 Status: Acute Assessment and Plan 1. GI bleed, symptomatic anemia: Patient presented with history of 4 days of black stools. Hemoccult positive on exam. Hemoglobin is trending down. Appreciate GI recommendations. Status post EGD. Was found to have ulcers. Continue Protonix. Plan is for colonoscopy in the morning. Monitor H&H every 6 hours. Transfuse if hemoglobin less than 7. 2. Leukocytosis: Likely reactive secondary to acute GI bleed. Monitor labs. 3. DVT prophylaxis: SCDs, KAYLIN hose. Avoid chemical prophylaxis secondary to GI bleed. Discharge Planning When cleared by GI. Problem Qualifiers (1) GI bleed: Qualified Code: K92.2 - Gastrointestinal hemorrhage, unspecified gastrointestinal hemorrhage type Chano Lambert MD Dec 10, 2016 15:56
[2016-12-10] MEDS: SUCRALFATE 1 GM/10 ML CUP PO SCH ×2 (16:10→20:47)
--- NOTE | 2016-12-10 19:26 | EKG ---
Date Performed: 12/09/2016 Time Performed: 21:19:53 PTAGE: 46 years EKG: SINUS TACHYCARDIA ABNORMAL RHYTHM ECG NO PREVIOUS TRACING DOCTOR: Fabiana Melara Interpretating Date/Time 12/10/2016 19:23:39
[2016-12-10 21:06] LABS: HEMATOCRIT 21.8 % (39.0-51.0); REVIEW FLAG FINAL
[2016-12-11] MEDS: PANTOPRAZOLE INJ 80 MG in SODIUM CHLORIDE 0.9% INJ 100 ML IV SCH (01:45)
[2016-12-11 02:16] LABS: HEMATOCRIT 23.2 % (39.0-51.0); REVIEW FLAG FINAL
[2016-12-11 04:12] VITALS: BP 108/68; PULSE 81; RESP 20; TEMP 98.6; O2SAT 99
[2016-12-11] MEDS: SODIUM CHLOR 0.9% 1000 ML INJ 1,000 ML IV SCH (06:34)
[2016-12-11] MEDS: SUCRALFATE 1 GM/10 ML CUP PO SCH ×2 (06:35→11:00)
[2016-12-11 07:23] VITALS: BP 117/70; PULSE 87; RESP 18; TEMP 98.4; O2SAT 97
[2016-12-11 07:37] LABS: ALKALINE PHOSPHATASE 59 U/L (45-117); ALT (GPT) 20 U/L (12-78); ANION GAP 5 MEQ/L (5-15); AST (GOT) 9 U/L (15-37); BLOOD UREA NITROGEN 13 MG/DL (7-18); CHLORIDE 110 MEQ/L (98-107); GLOMERULAR FILTRATION RATE 85 ML/MIN (>89); POTASSIUM 4.5 MEQ/L (3.5-5.1); SODIUM (NA) 144 MEQ/L (136-145); TOTAL BILIRUBIN ADULT 0.2 MG/DL (0.2-1.0)
[2016-12-11] MEDS: SODIUM CHLORIDE 0.9% FLUSH 10 ML FLUSH IV FLUSH SCH (08:39)
[2016-12-11] MEDS: DOCUSATE SODIUM 50 MG/SENNA 8.6 MG TAB PO SCH (08:40)
--- NOTE | 2016-12-11 09:30 | HHI.PR ---
Subjective Remarks Follow up GI bleed, anemia. H/H stable overnight. Patient states that he feels better. Has ambulated without lightheadedness/dizziness. Denies chest pain, dyspnea. Had a bowel movement this morning, which he states was almost normal. Much less black stool than before. Objective Vitals Vital Signs Date Time Temp Pulse Resp B/P Pulse Ox O2 Delivery O2 Flow Rate FiO2 12/11/16 07:23 98.4 87 18 117/70 97 12/11/16 04:12 98.6 81 20 108/68 99 12/10/16 23:30 97.9 83 20 126/69 97 12/10/16 20:27 97.7 82 20 135/79 99 12/10/16 16:08 98.7 91 19 122/76 99 12/10/16 12:01 97.9 91 16 124/81 99 12/10/16 11:51 97 18 126/74 98 12/10/16 11:41 90 18 117/72 97 12/10/16 11:31 98.1 93 18 118/79 97 12/10/16 10:23 98.7 94 16 131/70 99 I/O 12/10/16 12/10/16 12/10/16 12/11/16 12/11/16 12/11/16 07:00 15:00 23:00 07:00 15:00 23:00 Intake Total 400 ml 1800 ml Balance 400 ml 1800 ml Intake Oral 600 ml IV Total 1200 ml Other 400 ml # Bowel Movements 2 Result Diagram: 12/11/16 0201 12/11/16 0631 Imaging Last Impressions Abdomen/Pelvis CT 12/09/16 0000 Signed Impressions: Service Date/Time: Saturday, December 10, 2016 00:05 - CONCLUSION: 1. A few scattered diverticula are seen throughout the colon. 2. Small benign 8mm left renal cyst. 3. Otherwise, unremarkable exam. Godfrey Verduzco MD Objective Remarks General: No acute distress. Heart: Regular rate and rhythm. No murmur. Lungs: Clear to auscultation bilaterally. No wheezes, rales, or rhonchi. Breathing is nonlabored. Abdomen: Soft, nontender, nondistended. Extremities: No lower extremity edema. Psych: Alert and oriented. Procedures 12/10/16 EGD Urinary Catheter: No Vascular Central Line Catheter: No A/P Problem List: (1) GI bleed ICD Code: K92.2 Status: Acute (2) Anemia ICD Code: D64.9 Status: Acute (3) Leukocytosis ICD Code: D72.829 Status: Acute Assessment and Plan 1. GI bleed, symptomatic anemia: Patient presented with history of 4 days of black stools. Hemoccult positive on exam. Hemoglobin is trending down. Appreciate GI recommendations. Status post EGD. Was found to have ulcers. Continue Protonix. Monitor H&H every 6 hours. Transfuse if hemoglobin less than 7. Colonoscopy today. 2. Leukocytosis: Likely reactive secondary to acute GI bleed. Monitor labs. 3. DVT prophylaxis: SCDsKAYLIN. Avoid chemical prophylaxis secondary to GI bleed. Discharge Planning When cleared by GI. Problem Qualifiers (1) GI bleed: Qualified Code: K92.2 - Gastrointestinal hemorrhage, unspecified gastrointestinal hemorrhage type Chano Lambert MD Dec 11, 2016 09:30
[2016-12-11 11:02] VITALS: BP 117/70; PULSE 87; RESP 18; TEMP 98.4; O2SAT 97
[2016-12-11] MEDS ORDERED: PROPOFOL 200 MG/20 ML AMP IV ONE (12:42)
[2016-12-11 12:46] VITALS: TEMP 98.7
--- NOTE | 2016-12-11 12:54 | GIPROC ---
[facility] [address] [facility]. [facility], [address] COLONOSCOPY PROCEDURE REPORT EXAM DATE: 12/11/2016 PATIENT NAME: Montana Martin MR #: [id number] BIRTHDATE: 1970 ENDOSCOPIST: Yuli Pozo MD ORDER #: [id number] COMMERCIAL FIELD INSPECTOR: Kami Robles and Concepcion De La Fuente STATUS: inpatient INDICATIONS: The patient is a 46 yr old male here for a colonoscopy due to anemia, gi bleeding PROCEDURE PERFORMED: Colonoscopy with polypectomy Colonoscopy with biopsy MEDICATIONS: None and Per Anesthesia. PREP QUALITY: good PREP TYPE:Magnesium Citrate ESTIMATED BLOOD LOSS: None CONSENT: The patient understands the risks and benefits of the procedure and understands that these risks include, but are not limited to: sedation, allergic reaction, infection, perforation and/or bleeding. Alternative means of evaluation and treatment include, among others: physical exam, x-rays, and/or surgical intervention. The patient elects to proceed with this endoscopic procedure. medical equipment was checked for proper function. Hand hygiene and appropriate measures for infection prevention was taken. After the risks, benefits and alternatives of the procedure were thoroughly explained, Informed consent was verified, confirmed and timeout was successfully executed by the treatment team. A digital exam revealed external hemorrhoids The Pentax [id number] endoscope was introduced through the anus and advanced to the cecum, which was identified by both the appendix and ileocecal valve. The instrument was then slowly withdrawn as the colon was fully examined. COLON FINDINGS: Diverticulosis sigmoid, descending ulcer IC valve-biopsy, some bleeding cautey and 2 clips applied -no further bleeding polyp descending colon-5 mm-hot snare polypectomy with complete removal. Retroflexed views revealed internal hemorrhoids and Retroflexed views revealed medium internal hemorrhoids The scope was then completely withdrawn from the patient and the procedure terminated. PROCEDURE WITHDRAWAL TIME:14minutes ADVERSE EVENTS: There were no complications. IMPRESSIONS: 1. Diverticulosis sigmoid, descending ulcer IC valve-biopsy, some bleeding cautey and 2 clips applied -no further bleeding polyp descending colon-5 mm-hot snare polypectomy with complete removal 2. Retroflexed views revealed internal hemorrhoids 3. Retroflexed views revealed medium internal hemorrhoids 4. Revealed external hemorrhoids RECOMMENDATIONS: 1. Await biopsy results. Biopsy results will not be ready for 7-10 days. If you don't hear from us in two weeks, call our office for results. 2. Benefiber 2 tsp daily 3. High fiber diet 4. Resume diet start iron supplements -INtEGRA 1 daily cbc next week avoid NSAIDS capsule endoscopy ok to k[facility] home from gi point RECALL: Colonoscopy, pending biopsy results Yuli Pozo MD eSigned: Yuli Pozo MD 12/11/2016 12:54 PM cc: PATIENT NAME: Montana Martin MR#: [id number]
[2016-12-11 13:05] VITALS: BP 118/69; PULSE 84; RESP 18; O2SAT 97
[2016-12-11] MEDS ORDERED: FE FCAP PO (14:25)
--- NOTE | 2016-12-11 14:25 | HHI.DCPOC ---
Discharge Care Plan Diagnosis: (1) Anemia (2) Leukocytosis (3) GI bleed Goals to Promote Your Health * To prevent worsening of your condition and complications * To maintain your health at the optimal level Directions to Meet Your Goals Take your medications as prescribed Follow your dietary instruction Follow activity as directed Keep your appointments as scheduled Take your immunizations and boosters as scheduled If your symptoms worsen call your PCP, if no PCP go to Urgent Care Center or Emergency Room Smoking is Dangerous to Your Health. Avoid second hand smoke Call the 24-hour hour crisis hotline for domestic abuse at Chano Lambert MD Dec 11, 2016 14:25
== END 2016-12-11 14:52 | disposition home or self-care (01) | DRG 378 ==
LOC: NEPE 20:39 → NEDA 12-10 00:54 → NEDH 12-10 06:15 → NEPGCP 12-10 11:27
PROVIDERS: ADMIT Family Medicine; ATTEND Family Medicine
PROC: 0W3P8ZZ Control Bleeding in Gastrointestinal Tract, Via Natural or Artificial Opening Endoscopic (ICD-10-PCS; 2016-12-10)
PROC: 0DB68ZX Excision of Stomach, Via Natural or Artificial Opening Endoscopic, Diagnostic (ICD-10-PCS; 2016-12-10)
PROC: 0DB58ZX Excision of Esophagus, Via Natural or Artificial Opening Endoscopic, Diagnostic (ICD-10-PCS; 2016-12-10)
PROC: 0DB98ZX Excision of Duodenum, Via Natural or Artificial Opening Endoscopic, Diagnostic (ICD-10-PCS; principal; 2016-12-10 10:22)
PROC: 0W3P8ZZ Control Bleeding in Gastrointestinal Tract, Via Natural or Artificial Opening Endoscopic (ICD-10-PCS; 2016-12-11)
PROC: 0DBM8ZZ Excision of Descending Colon, Via Natural or Artificial Opening Endoscopic (ICD-10-PCS; 2016-12-11)
DX: K25.4 Chronic or unspecified gastric ulcer with hemorrhage (principal); D62 Acute posthemorrhagic anemia; K63.3 Ulcer of intestine; N28.1 Cyst of kidney, acquired; D72.829 Elevated white blood cell count, unspecified; K29.80 Duodenitis without bleeding; K29.50 Unspecified chronic gastritis without bleeding; K44.9 Diaphragmatic hernia without obstruction or gangrene; K63.5 Polyp of colon; K64.8 Other hemorrhoids
CPT/HCPCS: 74177; 80053; 81001; 83690; 85014; 85018; 85025; 85610; 85730; 86850; 86900; 86901; 88305; 88312; 93005; 96361; 96374; C9113; J2060; J2250; J2405; J7030; Q9967